=== PATIENT | male | born 1955 | race Caucasian/White ===

== ENCOUNTER 2023-10-14 08:06 | Day surgery (SDC) | payer MEDICARE, MEDICAID ==
[2023-10-13 08:30] VITALS: BMI 30.3
[2023-10-14] MEDS ORDERED: AFRIN NASAL MIST 15 ML BOT ONE ×2 (09:22→10:38)
[2023-10-14 10:07] LABS: Hematocrit 53.7 % (42.0-52.0); Hemoglobin 19.1 g/dL (14.0-18.0)
[2023-10-14] MEDS ORDERED: Labetalol HCl 100 MG/20 ML VIAL ONE ×2 (10:11→11:19)
[2023-10-14] MEDS ORDERED: fentaNYL PF 100 MCG/2 ML SYRINGE ONE (10:33)
[2023-10-14] MEDS ORDERED: PROPOFOL 40 ML ONE (10:33)
[2023-10-14] MEDS ORDERED: Ondansetron PF 4 MG/2 ML Vial ONE (10:34)
[2023-10-14] MEDS ORDERED: Dexamethasone 20 MG/5 ML VIAL ONE (10:34)
[2023-10-14] MEDS ORDERED: Lidocaine 1% PF 5 ML VIAL ONE (10:34)
[2023-10-14] MEDS ORDERED: Lidocaine 1% (PF) 30 ML VIAL ONE (10:38)
[2023-10-14] MEDS ORDERED: EPINEPHrine 1 MG/ML VIAL ONE (10:38)
[2023-10-14 11:19] LABS: Anion Gap 11 mmol/L (10-20); BUN (Urea Nitrogen) 16 mg/dL (8.4-25.7); Calc. Creatinine Clearance 141 mL/min (70-130); Carbon Dioxide 23 mmol/L (23-31); Chloride 105 mmol/L (98-107); Estimated GFR 99; Glucose 157 mg/dL (80-115); Potassium 4.1 mmol/L (3.5-5.1); Sodium 135 mmol/L (136-145)
[2023-10-14] MEDS ORDERED: fentaNYL 50 mcg/mL 1 mL Vial ONE (11:57)
== END 2023-10-14 14:35 | disposition home or self-care (01) ==
LOC: SDC 08:06
PROVIDERS: ATTEND Otolaryngology Plastic Surgery within the Head & Neck
PROC: 09TV8ZZ Resection of Left Ethmoid Sinus, Via Natural or Artificial Opening Endoscopic (ICD-10-PCS; principal; 2023-10-14)
PROC: 09TR8ZZ Resection of Left Maxillary Sinus, Via Natural or Artificial Opening Endoscopic (ICD-10-PCS; 2023-10-14)
PROC: 09TT8ZZ Resection of Left Frontal Sinus, Via Natural or Artificial Opening Endoscopic (ICD-10-PCS; 2023-10-14)
PROC: 09TL8ZZ Resection of Nasal Turbinate, Via Natural or Artificial Opening Endoscopic (ICD-10-PCS; 2023-10-14)
PROC: 0CTNXZZ Resection of Uvula, External Approach (ICD-10-PCS; 2023-10-14)
DX: J34.3 Hypertrophy of nasal turbinates (principal); J33.9 Nasal polyp, unspecified; J32.8 Other chronic sinusitis; K13.79 Other lesions of oral mucosa; H26.9 Unspecified cataract; R73.03 Prediabetes; Z79.899 Other long term (current) drug therapy; H93.13 Tinnitus, bilateral
CPT/HCPCS: 30140; 31253; 31267; 42140; 61782; 80048; 85014; 85018; 93005; J0171; J1100; J2001; J2405; J2704; J3010; 93010